=== PATIENT | female | born 1965 | race Caucasian/White ===

== ENCOUNTER 2020-06-16 08:11 | Emergency (ER) | payer OTHER, SELFPAY ==
[2020-06-16 08:20] VITALS: BP 124/74; PULSE 81; RESP 19; TEMP 37.4; O2SAT 100; BMI 23.7
--- NOTE | 2020-06-16 08:27 | ED.DENTAL ---
HPI - Dental/Oral General Chief complaint: Dental/Oral Stated complaint: Poss abcess tooth Time Seen by Provider: 06/16/20 08:22 Source: patient Mode of arrival: Ambulatory Limitations: no limitations History of Present Illness HPI Narrative: Patient is a 54-year-old female who presents with dental pain. She says she cracked a tooth about a week ago but last night had intense swelling of the right side of her face. No fever or chills. MD Complaint: tooth pain Teeth map: 1. Onset (ago): hour(s) Duration: constant Relieving factors: nothing Related Data Home Medications Medication Instructions Recorded Confirmed ALBUTEROL SULFATE (Ventolin / 0 INH PRN #0 03/18/07 Proventil) Previous Rx's Medication Instructions Recorded amoxicillin 500 mg PO BID #14 cap 06/16/20 Review of Systems Review of Systems Narrative: GENERAL: Denies chills,fever HEENT: See HPI RESPIRATORY: Denies dyspnea, cough, wheezing CARDIOVASCULAR: Denies chest pain, palpitations GASTROINTESTINAL: Denies nausea, vomiting MUSCULOSKELETAL: Denies extremity pain, injury SKIN: No rash, no laceration, no pruritus NEUROLOGIC: Denies weakness, dizziness, headache, numbness 8 point review of systems is negative except for those stated above and HPI Patient History Social History Smoking Status: Current every day smoker Smoking Status: Current every day smoker tobacco type: cigarettes alcohol intake frequency: holidays/special occasions only Substance Use Type: does not use Exam Initial Vital Signs Initial Vital Signs: Vital Signs Temperature 99.4 F 06/16/20 08:20 Pulse Rate 81 06/16/20 08:20 Respiratory Rate 19 06/16/20 08:20 Blood Pressure 124/74 06/16/20 08:20 Pulse Oximetry 100 06/16/20 08:20 GENERAL: Well-appearing, well-nourished and in no acute distress. MOUTH: Swelling over right side of face no trismus no dental abscess appreciated CARDIOVASCULAR: peripheral pulses in tact, cap refill <2 sec RESPIRATORY: No respiratory distress, speaks in full sentences without difficulty EXTREMITIES: Normal range of motion, no clubbing or edema. Neurovascularly intact NEUROLOGICAL: Cranial nerves II through XII grossly intact. Normal gait and speech. SKIN: Warm, dry, no petechiae, no rashes or lesions. Course Vital Signs Vital signs: Vital Signs - 8 hr 06/16/20 08:20 Temperature 99.4 F Pulse Rate 81 Respiratory Rate 19 Blood Pressure 124/74 Pulse Oximetry 100 Discharge Plan Departure Patient Disposition: Home Clinical Impression: Toothache Instructions: DI for Dental Pain Activity Restrictions/Additional Instructions: *You have been diagnosed with dental pain *What to do: You will need to see a dentist. *Continue to take medications as directed Amoxicillin 500 mg twice a day for 7 days Ibuprofen 800 mg every 8 hours if needed for lutk-on-ahjfahsm pain and or swelling *Follow up with your primary care provider in 2-3 days *Return to ER if you should have fever increased swelling, inability to swallow or any new, worsening or concerning symptoms Prescriptions: New amoxicillin 500 mg capsule 500 mg PO BID Qty: 14 RF: 0 No Action ALBUTEROL SULFATE (Ventolin / Proventil) 0 INH PRN Qty: 0 RF: 0
== END 2020-06-16 08:48 | disposition home or self-care (01) ==
PROVIDERS: Emergency Provider Emergency Medicine
DX: K08.89 Other specified disorders of teeth and supporting structures (principal)
CPT/HCPCS: 99281

== ENCOUNTER 2020-06-16 20:55 | Inpatient (IN) | payer OTHER, MEDICAID, SELFPAY ==
[2020-06-16 20:55] VITALS: BP 167/79; PULSE 70; RESP 18; TEMP 37; O2SAT 100
--- NOTE | 2020-06-16 20:57 | ED.DENTAL ---
HPI - Dental/Oral General Chief complaint: Dental/Oral Stated complaint: right facial swelling Time Seen by Provider: 06/16/20 20:56 Source: patient Mode of arrival: Ambulatory Limitations: no limitations History of Present Illness HPI Narrative: 55F smoker with extensive dental history returns with significantly worsening right sided facial swelling. She had a cracked tooth a few ago and presented earlier in the day with some right sided facial pain and mild swelling. She was placed on oral antibiotics and given appropriate return precautions. She returns with significantly increased pain and swelling. She denies any fever or chills and has had no trouble swallowing. She denies nausea or vomiting. MD Complaint: tooth pain Teeth map: 1. Onset (ago): day(s) Duration: worsening Severity: moderate Relieving factors: nothing Exacerbating factors: chewing Context: history of dental caries and poor dental care Treatment prior to arrival: other Related Data Home Medications Medication Instructions Recorded Confirmed ALBUTEROL SULFATE (Ventolin / 0 INH PRN #0 03/18/07 Proventil) Previous Rx's Medication Instructions Recorded amoxicillin 500 mg PO BID #14 cap 06/16/20 Allergies Allergy/AdvReac Type Severity Reaction Status Date / Time No Known Drug Allergies Allergy Verified 06/16/20 20:58 Review of Systems Constitutional Constitutional: Denies chills, Denies fatigue, Denies fever(s), Denies frequent falls, Denies lethargy and Denies weakness Eyes Eyes: Denies change in vision, Denies eye discharge, Denies irritation and Denies loss of vision ENT Ears, Nose, Mouth, and Throat: Denies change in voice, Denies dizziness, Reports facial pain, Denies neck pain, Denies sore throat and Denies throat swelling Cardiovascular Cardiovascular: Denies chest pain, Denies irregular heart rhythm, Denies lightheadedness, Denies palpitations, Denies dyspnea, Denies dyspnea on exertion and Denies orthopnea Respiratory Respiratory: Denies cough, Denies dyspnea, Denies dyspnea on exertion and Denies wheezing Gastrointestinal Gastrointestinal: Denies abdominal pain, Denies change in bowel habits, Denies diarrhea, Denies nausea and Denies vomiting Musculoskeletal Musculoskeletal: Denies neck pain and Denies numbness Integumentary/Breasts Skin/Breast: Denies pruritus, Denies erythema, Denies rash and Denies wounds Neurologic Neurologic: Denies behavioral changes, Denies confusion, Denies dizziness, Denies frequent falls, Denies loss of vision, Denies numbness and Denies weakness Psychiatric Psychiatric: Denies anxiety, Denies behavioral changes, Denies confusion, Denies depression, Denies homicidal ideation and Denies suicidal ideation Endocrine Endocrine: Denies fatigue, Denies flushing and Denies palpitations Hematologic/Lymphatic Hematologic/Lymphatic: Denies easy bruising Allergic/Immunologic Allergic/Immunologic: Denies urticaria, Denies throat swelling and Denies wheezing Patient History Social History Smoking Status: Current every day smoker Smoking Status: Current every day smoker tobacco type: cigarettes alcohol intake frequency: holidays/special occasions only Substance Use Type: does not use Exam Narrative Exam Narrative: GENERAL: [55] year old patient appears stated age. Well-nourished, well-developed patient, in mild distress. HEAD: Atraumatic. Largely increased right sided facial swelling with some warmth and redness, no fluctuance EYES: Pupils equal round and reactive. Extraocular motions intact. No scleral icterus. No injection or drainage. ENT: Poor dentition throughout. No evidence of obvious dental abscess. Nose without bleeding, purulent drainage. Throat without erythema, tonsillar hypertrophy or exudate. Airway patent. NECK: Trachea midline. Non tender CARDIOVASCULAR: Regular rate and rhythm without murmurs, gallops, or rubs. RESPIRATORY: Clear to auscultation. Breath sounds equal bilaterally. No wheezes, rales, or rhonchi. GASTROINTESTINAL: Abdomen soft, non-tender, nondistended. EXTREMITIES: No edema or joint tenderness. BACK: Nontender without deformity or crepitance. No flank tenderness. NEURO: AOx3. SKIN: No rash or erythema of visible areas Initial Vital Signs Initial Vital Signs: Vital Signs Temperature 98.6 F 06/16/20 20:55 Pulse Rate 70 06/16/20 20:55 Respiratory Rate 18 06/16/20 20:55 Blood Pressure 167/79 H 06/16/20 20:55 Pulse Oximetry 100 06/16/20 20:55 Course Orders Ordered: ED Orders 06/16/20 22:23 CT facial bones w con Stat 06/16/20 22:50 Blood Culture Stat 06/16/20 23:15 Complete Blood Count AUTO DIFF Stat Comprehensive Metabolic Panel Stat Lactate (Lactic Acid) Stat Discontinued Medications Sodium Chloride (Normal Saline 0.9%) 1,000 mls @ 1,000 mls/hr IV BOLUS ONE Stop: 06/16/20 23:22 Last Admin: 06/16/20 23:20 Dose: 1,000 mls/hr Documented by: DON Ampicillin Sodium/Sulbactam (Sodium 3 gm/ Sodium Chloride) 100 mls @ 100 mls/hr IV NOW ONE Stop: 06/16/20 22:24 Last Admin: 06/16/20 23:20 Dose: 100 mls/hr Documented by: DON Ketorolac Tromethamine (Toradol) 15 mg IV NOW ONE Stop: 06/16/20 22:24 Last Admin: 06/16/20 23:20 Dose: 15 mg Documented by: DON Lorazepam (Ativan) 1 mg IV NOW ONE Stop: 06/16/20 23:31 Last Admin: 06/16/20 23:36 Dose: 1 mg Documented by: DON Vital Signs Vital signs: Vital Signs - 8 hr 06/16/20 20:55 Temperature 98.6 F Pulse Rate 70 Respiratory Rate 18 Blood Pressure 167/79 H Pulse Oximetry 100 MDM - Dental/Oral Lab Data Result diagrams: 06/16/20 23:15 06/16/20 23:15 Labs: Lab Results 06/16/20 06/16/20 06/16/20 Range/Units 23:15 23:15 23:15 WBC 9.5 (4.5-11.0) X10^3/uL RBC 4.86 (4.0-5.2) X10^6/uL Hgb 12.3 (12.0-16.0) g/dL Hct 37.8 (36-46) % MCV 77.8 L (80-100) fL MCH 25.4 L (26-34) PG MCHC 32.6 (30-36) % RDW 15.7 H (11.6-14.8) % Plt Count 206 (150-400) X10^3/uL Neut % (Auto) 73.7 (50-75) % Lymph % (Auto) 17.6 L (25-40) % [place] % (Auto) 7.7 (3-14) % Eos % (Auto) 0.5 L (2-4) % Baso % (Auto) 0.5 (0-2) % Neut # (Auto) 7000 (0967-5253) /uL Lymph # (Auto) 1700 (9893-2521) /uL [place] # (Auto) 700 (0-900) /uL Eos # (Auto) 0 (0-450) /uL Baso # (Auto) 0 (0-100) /uL Sodium 135 L (137-145) mmol/L Potassium 4.5 (3.4-5.1) mmol/L Chloride 102 (98-107) mmol/L Carbon Dioxide 28 (22-32) mmol/L BUN 13 (7-17) mg/dL Creatinine 0.65 (0.52-1.04) mg/dL Estimated GFR > 60.0 (>60) mL/min BUN/Creatinine Ratio 20.0 (6-22) Glucose 110 H (70-100) mg/dL Lactate 0.8 (0.7-2.1) mmol/L Calcium 9.1 (8.4-10.2) mg/dL Total Bilirubin 0.7 (0.2-1.3) mg/dL AST 82 H (14-36) IU/L ALT 65 H (<35) IU/L Alkaline Phosphatase 109 (38-126) U/L Total Protein 8.3 H (6.3-8.2) g/dL Albumin 4.0 (3.5-5.0) g/dL Globulin 4.3 H (1.7-4.1) g/dL Albumin/Globulin Ratio 0.9 L (1.0-2.8) COVID-19 PCR (Negative) 06/17/20 Range/Units 23:59 WBC (4.5-11.0) X10^3/uL RBC (4.0-5.2) X10^6/uL Hgb (12.0-16.0) g/dL Hct (36-46) % MCV (80-100) fL MCH (26-34) PG MCHC (30-36) % RDW (11.6-14.8) % Plt Count (150-400) X10^3/uL Neut % (Auto) (50-75) % Lymph % (Auto) (25-40) % [place] % (Auto) (3-14) % Eos % (Auto) (2-4) % Baso % (Auto) (0-2) % Neut # (Auto) (0684-8973) /uL Lymph # (Auto) (6913-5788) /uL [place] # (Auto) (0-900) /uL Eos # (Auto) (0-450) /uL Baso # (Auto) (0-100) /uL Sodium (137-145) mmol/L Potassium (3.4-5.1) mmol/L Chloride (98-107) mmol/L Carbon Dioxide (22-32) mmol/L BUN (7-17) mg/dL Creatinine (0.52-1.04) mg/dL Estimated GFR (>60) mL/min BUN/Creatinine Ratio (6-22) Glucose (70-100) mg/dL Lactate (0.7-2.1) mmol/L Calcium (8.4-10.2) mg/dL Total Bilirubin (0.2-1.3) mg/dL AST (14-36) IU/L ALT (<35) IU/L Alkaline Phosphatase (38-126) U/L Total Protein (6.3-8.2) g/dL Albumin (3.5-5.0) g/dL Globulin (1.7-4.1) g/dL Albumin/Globulin Ratio (1.0-2.8) COVID-19 PCR Negativen (Negative) Imaging Data CT Facial w/contrast: Radiologist's Impression: No discrete abscess. Findings suggesting myositis of right masseter Discharge Plan Departure Patient Disposition: Admitted As Inpatient Clinical Impression: Cellulitis of face Prescriptions: No Action ALBUTEROL SULFATE (Ventolin / Proventil) 0 INH PRN Qty: 0 RF: 0 amoxicillin 500 mg capsule 500 mg PO BID Qty: 14 RF: 0
--- NOTE | 2020-06-16 21:07 | PC.NURSE ---
Patient thinks she might have broken/had a tooth fall out; Its top row on Right side; Right side of face is very swollen which is now forming some swelling near Right eye. Describes pain 10/10; Ice making it feel worse Reports no issue swallowing. Tongue WNL
--- NOTE | 2020-06-16 22:23 | DI.CT.S_ITS ---
PROCEDURE: CT FACIAL BONES W CON INDICATIONS: severe pain and swelling, abscess? TECHNIQUE: After the administration of intravenous contrast, 2.5 mm axial sections acquired from the mid-neck to the frontal sinuses, with coronal and sagittal reformats. For radiation dose reduction, the following was used: automated exposure control, adjustment of mA and/or kV according to patient size. COMPARISON: None. FINDINGS: Image quality: Excellent. Soft tissues: Swelling/inflammation involving the right facial soft tissues in the right masseter muscle compatible with cellulitis and myositis. No abscess identified. No enlarged lymph nodes. Vascular: Visualized vascular structures appear patent throughout. Bony vascular foramina and canals appear normal. Bones: Facial bones appear intact, without fractures, erosions, or destruction. Visualized portions of the skull base and auditory canals also appear normal. Sinuses: Mucosal thickening noted in the maxillary sinuses bilaterally right greater than left. Mastoid air cells are aerated. IMPRESSION: 1. Extensive right facial soft tissue swelling and right masseter swelling compatible with cellulitis and myositis. 2. No abscess. Dictated by: Farheen Khalil MD, PhD on 06/17/2020 at 8:03 Approved by: Farheen Khalil MD, PhD on 06/17/2020 at 8:06
[2020-06-16] MEDS: KETOROLAC 60 MG/2 ML VIAL 15 MG IV (23:20)
[2020-06-16] MEDS: AMPICILLIN/SULBACTAM 3 GM 3 GM in SODIUM CHLORIDE 0.9% 100 ML IV (23:20)
[2020-06-16] MEDS: SODIUM CHLORIDE 0.9% 1,000 ML 1000 ML IV (23:20)
[2020-06-16 23:29] LABS: Add Manual Diff / Slide Review NO; Basophils Absolute Auto 0 /uL (0-100); Basophils Percent Auto 0.5 % (0-2); Eosinophils Absolute Auto 0 /uL (0-450); Eosinophils Percent Auto 0.5 % (2-4); Hematocrit 37.8 % (36-46); Hemoglobin 12.3 g/dL (12.0-16.0); Lymphocytes Absolute Auto 1700 /uL (1100-4500); Lymphocytes Percent Auto 17.6 % (25-40); Mean Corpuscular HGB Conc 32.6 % (30-36); Mean Corpuscular Hemoglobin 25.4 PG (26-34); Mean Corpuscular Volume 77.8 fL (80-100); Monocytes Absolute Auto 700 /uL (0-900); Monocytes Percent Auto 7.7 % (3-14); Neutrophils Absolute Auto 7000 /uL (1500-7000); Neutrophils Percent Auto 73.7 % (50-75); Platelet Count 206 X10^3/uL (150-400); Red Blood Cell Count 4.86 X10^6/uL (4.0-5.2); Red Cell Distribution Width 15.7 % (11.6-14.8); White Blood Cell Count 9.5 X10^3/uL (4.5-11.0)
[2020-06-16 23:35] LABS: Alanine Aminotransferase 65 IU/L (<35); Albumin Globulin Ratio 0.9 (1.0-2.8); Alkaline Phosphatase 109 U/L (38-126); Aspartate Aminotransferase 82 IU/L (14-36); Bilirubin Total 0.7 mg/dL (0.2-1.3); Blood Urea Nitrogen 13 mg/dL (7-17); Calcium 9.1 mg/dL (8.4-10.2); Carbon Dioxide 28 mmol/L (22-32); Chloride 102 mmol/L (98-107); Estimated Glomerular Filt Rate > 60.0 mL/min (>60); Globulin 4.3 g/dL (1.7-4.1); Glucose 110 mg/dL (70-100); HEMOLYSIS < 15 (0-50); Potassium 4.5 mmol/L (3.4-5.1); Sodium 135 mmol/L (137-145); Total Protein 8.3 g/dL (6.3-8.2)
[2020-06-16 23:36] LABS: Lactate (Lactic Acid) 0.8 mmol/L (0.7-2.1)
[2020-06-16] MEDS: LORazepam 2 MG/ML INJ 1 MG IV (23:36)
[2020-06-17 02:48] VITALS: BP 105/64; PULSE 75; RESP 16; O2SAT 95
[2020-06-17 03:13] VITALS: BMI 22.7
--- NOTE | 2020-06-17 03:17 | P.HP_ITS ---
History of Present Illness History of Present Illness Date Patient Seen: 06/17/20 Time Patient Seen: 03:17 Chief complaint: facial cellulitis, cracked upper molar Narrative: Patient is very lethargic and unable to provide me with a history. Linnea Israel is 55 y.o. female smoker with extensive dental history returned a second time to the ED with significantly worsening right sided facial swelling. She presented to the ED earlier in the day with right sided facial pain and mild swelling and was found to have a cracked upper molar on the right side. Initially she was rx'd on oral antibiotics and given appropriate return precautions. She returned to the ED with significantly increased pain and swelling. Per the ED provider, she denied any fever or chills and has had no trouble swallowing. She denied nausea or vomiting. The ED consulted with Dr. Aguilar, Oromaxillofacial surgeon who recommended Unasyn and that he would be available for consult. CT scan was done, read is pending. Patient is afebrile, blood pressure 113/72, heart rate 72, respiratory rate 18, oxygen saturation 97% on room air she weighs 65.7 kg with a BMI of 22.7. CBC is largely within normal limits but she does have a lymphopenia of 17.6 %, sodium 135, potassium 4.5, chloride 102, bicarb 28, BUN 13, creatinine 0.65, GFR is greater than 60, glucose 110, lactate is 0.8, AST 82, ALT 65, and COVID-19 is negative. The patient was a difficult IV stick so they and listed in the overnight nursing service to place a midline in her to receive IV antibiotics. I reviewed the ANUPAM report on the patient and it appears that she resides in [place] but goes to [facility] ED for various problems. She appears to have frequent cutaneous abscesses, history of IV drug use, and it is not known who her PCP if she has 1 is. She did inform the nurse that she needed to be able to leave by 11:00 a.m. because she is residing in some sort of an encampment and states she has to be back there otherwise, they will remove her belongings. The ED provider stated we would be able to help her with locating her belongings and while she was in the ED, she stated she would stay. She would not engage in conversation with me or allow me to examine her. Patient History Medical History History of abscess of skin and subcutaneous tissue (Acute) History of substance abuse (Acute) Family & Social History Safety & Behavioral: Feels Safe in Current Yes Environment Been Physically Hurt or No Threatened By a Person Tobacco & Substance use: Smoking Status Current every day smoker alcohol intake frequency holiday/special occasion Substance Use Type Denies use, however multiple diagnosis of IVDU on State ANUPAM report Meds Home Medications and Allergies Home Medications Medication Instructions Recorded Confirmed Type ALBUTEROL SULFATE (Ventolin / 0 INH PRN #0 03/18/07 History Proventil) amoxicillin 500 mg PO BID #14 cap 06/16/20 Rx Allergies Allergy/AdvReac Type Severity Reaction Status Date / Time No Known Drug Allergies Allergy Verified 06/16/20 20:58 Review of Systems Review of Systems ROS: Yes other (Refused.) Exam Vital Signs (past 8 hours): - 06/16/20 20:55 06/17/20 02:48 Temperature 98.6 F Pulse Rate 70 75 Respiratory Rate 18 16 Blood Pressure 167/79 H 105/64 Pulse Oximetry 100 95 Oxygen Delivery Method Room Air Narrative Exam Narrative: Patient refused examination or interview by me and will addend if and when she allows me to do so. Objective Labs Result Diagrams: 06/17/20 05:13 06/17/20 05:13 Labs: Laboratory Results - last 24 hr 06/16/20 06/16/20 06/16/20 23:15 23:15 23:15 WBC 9.5 RBC 4.86 Hgb 12.3 Hct 37.8 MCV 77.8 L MCH 25.4 L MCHC 32.6 RDW 15.7 H Plt Count 206 Neut % (Auto) 73.7 Lymph % (Auto) 17.6 L [place] % (Auto) 7.7 Eos % (Auto) 0.5 L Baso % (Auto) 0.5 Neut # (Auto) 7000 Lymph # (Auto) 1700 [place] # (Auto) 700 Eos # (Auto) 0 Baso # (Auto) 0 Sodium 135 L Potassium 4.5 Chloride 102 Carbon Dioxide 28 BUN 13 Creatinine 0.65 Estimated GFR > 60.0 BUN/Creatinine Ratio 20.0 Glucose 110 H Lactate 0.8 Calcium 9.1 Total Bilirubin 0.7 AST 82 H ALT 65 H Alkaline Phosphatase 109 Total Protein 8.3 H Albumin 4.0 Globulin 4.3 H Albumin/Globulin Ratio 0.9 L COVID-19 PCR 06/17/20 23:59 WBC RBC Hgb Hct MCV MCH MCHC RDW Plt Count Neut % (Auto) Lymph % (Auto) [place] % (Auto) Eos % (Auto) Baso % (Auto) Neut # (Auto) Lymph # (Auto) [place] # (Auto) Eos # (Auto) Baso # (Auto) Sodium Potassium Chloride Carbon Dioxide BUN Creatinine Estimated GFR BUN/Creatinine Ratio Glucose Lactate Calcium Total Bilirubin AST ALT Alkaline Phosphatase Total Protein Albumin Globulin Albumin/Globulin Ratio COVID-19 PCR Negativen Assessment & Plan Assessment & Plan narrative: Linnea Israel is admitted inpatient for management and treatment of an infected interdental tooth fracture. Infected upper molar fracture, acute and present on admission -She failed outpatient treatment with increased swelling and pain -IV Unasyn 3 grams q 6 hours -Pain control with tylenol, IV ketoralac, and po oxycodone At risk for abscess -Due to recent diagnosis of cutaneous abcess, it would be prudent to have her undergo an echocardiogram to rule out vegetations and endocarditis -I have not ordered as discussion with the patient should happen before ordering At risk for leaving against medical advice -Patient has stated she will leave to get back to her encampment before 11 am -Requested consult to assist her in securing her belongings Recent hx of IVDU -UDS pending Consults: Dr. Aguilar, Oromaxillofacial surgeon consult and involvement is appreciated. Patient is admitted under inpatient status with expected length of stay greater than 2 midnights due to severity of presenting symptoms, risk of adverse event, and complexity of treatment plan. FEN: IV NS at 100 ml/hour, regular diet , BMP and magnesium in the am. VTE prophylaxis: Bilateral SCDs Dispo: Unknown at this time Code Status: Full code presumed due to patient refusing to answer my questions
[2020-06-17 03:26] VITALS: BP 113/72; PULSE 72; RESP 18; TEMP 36.1; O2SAT 97
--- NOTE | 2020-06-17 03:44 | PC.NURSE ---
Addendum entered by Nidia Busch R.N. 06/17/20 04:13: Patient refused physical nursing assessment. Original Note: Patient arrived to the acute care floor at 0310 via gurney. She is alert and oriented x4 but drowsy and agitated. Patient refused the hospital gown, skin assessment, shower and oral care. Patient states that she lives out of a tent and needs to be out of the hospital by 1100 or she will lose her stuff. Patient requests to be left alone so she can sleep.
[2020-06-17 05:35] LABS: Add Manual Diff / Slide Review NO; Basophils Absolute Auto 100 /uL (0-100); Basophils Percent Auto 0.7 % (0-2); Eosinophils Absolute Auto 100 /uL (0-450); Eosinophils Percent Auto 0.8 % (2-4); Hemoglobin 11.7 g/dL (12.0-16.0); Lymphocytes Absolute Auto 1500 /uL (1100-4500); Lymphocytes Percent Auto 20.4 % (25-40); Mean Corpuscular HGB Conc 32.6 % (30-36); Mean Corpuscular Hemoglobin 25.3 PG (26-34); Mean Corpuscular Volume 77.6 fL (80-100); Monocytes Absolute Auto 600 /uL (0-900); Neutrophils Absolute Auto 5100 /uL (1500-7000); Neutrophils Percent Auto 70.1 % (50-75); Platelet Count 169 X10^3/uL (150-400); Red Blood Cell Count 4.64 X10^6/uL (4.0-5.2); Red Cell Distribution Width 15.7 % (11.6-14.8); White Blood Cell Count 7.2 X10^3/uL (4.5-11.0)
[2020-06-17 05:50] LABS: BUN Creatinine Ratio 19.7 (6-22); Blood Urea Nitrogen 13 mg/dL (7-17); Calcium 8.7 mg/dL (8.4-10.2); Carbon Dioxide 29 mmol/L (22-32); Chloride 104 mmol/L (98-107); Estimated Glomerular Filt Rate > 60.0 mL/min (>60); Glucose 101 mg/dL (70-100); HEMOLYSIS < 15 (0-50); Sodium 137 mmol/L (137-145)
[2020-06-17 06:33] LABS: UR Morphine/Opiate cutoff 300 Positive (Negative); Ur Creatinine Normal (Normal); Ur Specific Gravity Normal (Normal); Urine Amphetamines Positive (Negative); Urine Barbiturates Negative (Negative); Urine Benzodiazepines Negative (Negative); Urine Cocaine Negative (Negative); Urine MDMA Negative (Negative); Urine Methadone Negative (Negative); Urine Methamphetamines Positive (Negative); Urine Oxycodone Negative (Negative); Urine Phencyclidine Negative (Negative); Urine Tetrahydrocannabinol Negative (Negative); Urine Tricyclic Antidepressant Negative (Negative); Urine pH Normal (Normal)
--- NOTE | 2020-06-17 07:43 | PM.DS.1 ---
History of Present Illness History of Present Illness Date Patient Seen: 06/17/20 Time Patient Seen: 07:30 Chief complaint: facial cellulitis, cracked upper molar Narrative: Patient is very lethargic and unable to provide me with a history. Linnea Israel is 55 y.o. female smoker with extensive dental history returned a second time to the ED with significantly worsening right sided facial swelling. She presented to the ED earlier in the day with right sided facial pain and mild swelling and was found to have a cracked upper molar on the right side. Initially she was rx'd on oral antibiotics and given appropriate return precautions. She returned to the ED with significantly increased pain and swelling. Per the ED provider, she denied any fever or chills and has had no trouble swallowing. She denied nausea or vomiting. The ED consulted with Dr. Aguilar, Oromaxillofacial surgeon who recommended Unasyn and that he would be available for consult. CT scan was done, read is pending. Patient is afebrile, blood pressure 113/72, heart rate 72, respiratory rate 18, oxygen saturation 97% on room air she weighs 65.7 kg with a BMI of 22.7. CBC is largely within normal limits but she does have a lymphopenia of 17.6 %, sodium 135, potassium 4.5, chloride 102, bicarb 28, BUN 13, creatinine 0.65, GFR is greater than 60, glucose 110, lactate is 0.8, AST 82, ALT 65, and COVID-19 is negative. The patient was a difficult IV stick so they and listed in the overnight nursing service to place a midline in her to receive IV antibiotics. I reviewed the ANUPAM report on the patient and it appears that she resides in [place] but goes to [facility] ED for various problems. She appears to have frequent cutaneous abscesses, history of IV drug use, and it is not known who her PCP if she has 1 is. She did inform the nurse that she needed to be able to leave by 11:00 a.m. because she is residing in some sort of an encampment and states she has to be back there otherwise, they will remove her belongings. The ED provider stated we would be able to help her with locating her belongings and while she was in the ED, she stated she would stay. She would not engage in conversation with me or allow me to examine her. Discharge Providers Provider Date of admission: 06/17/20 02:36 Discharge Date: 06/17/20 Consults: 06/17/20 02:55 Consult to Physician Routine Comment: Consulting Provider: Hao Aguilar Reason for consultation: Cracked upper molar #s 2 or 3 Has provider been notified: Yes 06/17/20 03:50 Consult to GAMBLING BROKER - Classifier Tender Routine Comment: Needs to secure belongings at encampment Discharge provider: Thuan Kirkpatrick DO Summary Hospital Course Discharge Diagnosis: Infected upper molar fracture, acute and present on admission R facial cellulitis and myositis Left against medical advice Recent hx of IVD Hospital Course: Patient presented for worsening R facial swelling and erythema and pain. She is homeless and was anxious to leave so as not to have her things stolen from her tent. Patient was counseled on risks of leaving including worsening pain, swelling, progression of infection and possible . She was competent to make decisions and was discharged against medical advice. I did sent additional antibiotics to her pharmacy and asked to return if any progression of symptoms or to seek further outpatient care with a PCP. Status at Discharge Cognitive/behavioral status at discharge: oriented Functional status at discharge: independent ambulation Exam Vital Signs (past 8 hours): - 06/17/20 02:48 06/17/20 03:26 Temperature 97.0 F L Pulse Rate 75 72 Respiratory Rate 16 18 Blood Pressure 105/64 113/72 Pulse Oximetry 95 97 Oxygen Delivery Method Room Air Oxygen Flow Rate 0 Narrative Exam Narrative: Gen: Anxious appearing female, fidgety. HEENT: mild R facial swelling and tenderness, would not allow lights in the room but only minimal overlying erythema. Poor dentition. Moist mucous membranes. Limited exam until patient requested to leave. CV: RRR no m/r/g Pulm: CTA b/l Abd: S NT ND Objective Labs Result Diagrams: 06/17/20 05:13 06/17/20 05:13 Labs: Laboratory Results - last 24 hr 06/16/20 06/16/20 06/16/20 23:15 23:15 23:15 WBC 9.5 RBC 4.86 Hgb 12.3 Hct 37.8 MCV 77.8 L MCH 25.4 L MCHC 32.6 RDW 15.7 H Plt Count 206 Neut % (Auto) 73.7 Lymph % (Auto) 17.6 L [place] % (Auto) 7.7 Eos % (Auto) 0.5 L Baso % (Auto) 0.5 Neut # (Auto) 7000 Lymph # (Auto) 1700 [place] # (Auto) 700 Eos # (Auto) 0 Baso # (Auto) 0 Sodium 135 L Potassium 4.5 Chloride 102 Carbon Dioxide 28 BUN 13 Creatinine 0.65 Estimated GFR > 60.0 BUN/Creatinine Ratio 20.0 Glucose 110 H Lactate 0.8 Calcium 9.1 Total Bilirubin 0.7 AST 82 H ALT 65 H Alkaline Phosphatase 109 Total Protein 8.3 H Albumin 4.0 Globulin 4.3 H Albumin/Globulin Ratio 0.9 L U Opiates 300ng/mL cut Ur Oxycodone Screen Urine Methadone Screen Ur Barbiturates Screen U Tricyclic Antidepress Ur Phencyclidine Scrn Ur Amphetamines Screen U Methamphetamines Scrn Ur MDMA Scrn (Ecstasy) U Benzodiazepines Scrn Urine Cocaine Screen U Marijuana (THC) Screen COVID-19 PCR 06/17/20 06/17/20 06/17/20 05:13 05:13 06:10 WBC 7.2 RBC 4.64 Hgb 11.7 L Hct 36.0 MCV 77.6 L MCH 25.3 L MCHC 32.6 RDW 15.7 H Plt Count 169 Neut % (Auto) 70.1 Lymph % (Auto) 20.4 L [place] % (Auto) 8.0 Eos % (Auto) 0.8 L Baso % (Auto) 0.7 Neut # (Auto) 5100 Lymph # (Auto) 1500 [place] # (Auto) 600 Eos # (Auto) 100 Baso # (Auto) 100 Sodium 137 Potassium 4.0 Chloride 104 Carbon Dioxide 29 BUN 13 Creatinine 0.66 Estimated GFR > 60.0 BUN/Creatinine Ratio 19.7 Glucose 101 H Lactate Calcium 8.7 Total Bilirubin AST ALT Alkaline Phosphatase Total Protein Albumin Globulin Albumin/Globulin Ratio U Opiates 300ng/mL cut Positive H Ur Oxycodone Screen Negative Urine Methadone Screen Negative Ur Barbiturates Screen Negative U Tricyclic Antidepress Negative Ur Phencyclidine Scrn Negative Ur Amphetamines Screen Positive H U Methamphetamines Scrn Positive H Ur MDMA Scrn (Ecstasy) Negative U Benzodiazepines Scrn Negative Urine Cocaine Screen Negative U Marijuana (THC) Screen Negative COVID-19 PCR 06/17/20 23:59 WBC RBC Hgb Hct MCV MCH MCHC RDW Plt Count Neut % (Auto) Lymph % (Auto) [place] % (Auto) Eos % (Auto) Baso % (Auto) Neut # (Auto) Lymph # (Auto) [place] # (Auto) Eos # (Auto) Baso # (Auto) Sodium Potassium Chloride Carbon Dioxide BUN Creatinine Estimated GFR BUN/Creatinine Ratio Glucose Lactate Calcium Total Bilirubin AST ALT Alkaline Phosphatase Total Protein Albumin Globulin Albumin/Globulin Ratio U Opiates 300ng/mL cut Ur Oxycodone Screen Urine Methadone Screen Ur Barbiturates Screen U Tricyclic Antidepress Ur Phencyclidine Scrn Ur Amphetamines Screen U Methamphetamines Scrn Ur MDMA Scrn (Ecstasy) U Benzodiazepines Scrn Urine Cocaine Screen U Marijuana (THC) Screen COVID-19 PCR Negativen Discharge Plan Discharge Plan Patient Disposition: Left Against Medical Advice Discharge comment: You left against medical advice for a dental infection. Please take oral antibiotics or come back. Discharge orders & Medications Prescriptions: New cefdinir 300 mg capsule 300 mg PO BID 7 Days Qty: 14 RF: 0 clindamycin HCl 300 mg capsule 300 mg PO TID 7 Days Qty: 21 RF: 0 Continued ALBUTEROL SULFATE (Ventolin / Proventil) 0 INH PRN Qty: 0 RF: 0 amoxicillin 500 mg capsule 500 mg PO BID Qty: 14 RF: 0 Discharge Health Status Health Concerns: Dental infection, cellulitis Diet/Activity/Treatments Diet: Diet as Tolerated Activity: As tolerated. Visit Report/Discharge Packet Instructions: DI for Cellulitis -- Adult, Tooth Abscess, Cellulitis, DI for Fractured Tooth Visit Report Forms: Patient Portal/API, Stroke Signs & Symptoms Discharges patient from system. Discharge Date/Time: 06/17/20 07:52 Quality VTE Deep Vein Thrombosis/Pulmonary Embolism Present on Admission: No
--- NOTE | 2020-06-17 07:56 | PC.NURSE ---
Day shift: Pt left unit AMA. That AMA paperwork signed and is in the chart. Pt stated I need to get back to my campsite now. I can't be here. Dr Kirkpatrick talked with Pt as well and Pt still wanted to leave. She is no longer here as this is written. jewel hole finish opener Fabio is writing a note as well. IV taken out by Fabio DALTON.
--- NOTE | 2020-06-17 07:58 | PC.NURSE ---
State Epidemiologist note: Asked to go to room 213. Pt visibly upset, repeatedly saying she needs to go, needs to go. She doesn't want to lose her stuff. Pt lives in a tent, location unknown. Dr. Kirkpatrick aware of situation and has spoken with the patient. Pt determined to go. Pt's Nurse Karson has also spoken with the Pt. Pt dressed and wanting to go. Mid-line removed per protocal. Tip intact. site dressed. Pt escorted out by VIANEY Cooper.
--- NOTE | 2020-06-17 09:25 | CM.DANOTE ---
DCP/Brief Assessment: Reviewed chart. Patient is a 55yr old female admitted to [facility] with facial cellulitis. No PCP listed. Primary payor is 1)PW 2)Medicaid. MANAGER HOUSE received consult. Attempted to see patient this AM for evaluation. Referral requested for assistance securing patient's belongings in encampment. Provider reports patient left [facility] AMA because she was concerned about her belongings? Also provider suspects drug abuse and patient wanting to leave to get more drugs. P: MANAGER HOUSE unable to do consult due to patient leaving AMA. LANCE Pope Discharge Planning/Care Management CM Discharge Assessment Start: 06/17/20 09:22 Freq: Status: Discharge Protocol: Document 06/17/20 09:23 KJS (Rec: 06/17/20 09:25 KJS [id number]) Discharge Planning Assessment Assigned Logging Operations Inspector LANCE Pope Contact Information Mariaa Nolan (mother) Advance Directives? No History Provided By Medical Record Prior Living Arrangements Homeless Household Members none Independent with ADL's Yes Is patient alert and oriented? Yes: Per provider alert and oriented x3 Comment Homeless Additional Comment Patient left [facility] prior to MANAGER HOUSE visit at 9:00AM today. Review Status In Process Next Review Type Continued Stay Review
[2020-06-19 10:23] LABS: COVID19 -Nasal RAPID Negative (Negative)
== END 2020-06-17 07:52 | disposition left against medical advice (07) | DRG 383 ==
LOC: ED 06-17 02:37 → AC 06-17 02:37
PROVIDERS: Admitting Provider Nurse Practitioner Family; Emergency Provider Emergency Medicine; Referring Provider Emergency Medicine; Visit Provider Nurse Practitioner Family
DX: L03.211 Cellulitis of face (principal); M60.88 Other myositis, other site; K03.81 Cracked tooth; F15.90 Other stimulant use, unspecified, uncomplicated; F17.210 Nicotine dependence, cigarettes, uncomplicated; K08.89 Other specified disorders of teeth and supporting structures
CPT/HCPCS: 36415; 70487; 80048; 80053; 80305; 83605; 85025; 87040; 87635; 96374; 96375; 99281; 99284; J0295; J1885; J2060; Q9967